=== PATIENT | male | born 1980 | race Two or more races ===

== ENCOUNTER 2025-02-19 19:29 | Emergency (ER) | payer OTHER ==
[~2025-02-19] VITALS: Ht 175.3 cm; Wt 108.0 kg
[2025-02-19] MEDS ORDERED: AZOR 10-40 MG1 EACH PO (19:34)
[2025-02-19] MEDS ORDERED: SYNTHROID112 MCG PO (19:34)
[2025-02-19] MEDS ORDERED: KETOROLAC TROMETHAMINE 15 MG VIAL IM STA (20:02)
[2025-02-19] MEDS ORDERED: KETOROLAC TROMETHAMINE 60 MG VIAL IM ONE (20:06)
[2025-02-19] MEDS ORDERED: PERCOCET 10-321 EACH PO (23:57)
[2025-02-20] MEDS ORDERED: MORPHINE SULFATE 4 MG/ML VIAL IV ONE (00:15)
== END 2025-02-20 00:18 | disposition home or self-care (01) ==
LOC: ER 20:46
DX: S52.122A Displaced fracture of head of left radius, initial encounter for closed fracture (principal); W18.39XA Other fall on same level, initial encounter; Y93.89 Activity, other specified; Y92.89 Other specified places as the place of occurrence of the external cause; Y99.9 Unspecified external cause status; E03.9 Hypothyroidism, unspecified; E05.90 Thyrotoxicosis, unspecified without thyrotoxic crisis or storm